=== PATIENT | female | born 1970 ===

== ENCOUNTER 2021-10-17 08:42 | Outpatient (CLI) | payer OTHER ==
[~2021-10-17 08:42] MED LIST: AMOX1TAB12 PO; ZANTAC300 MG PO
== END 2021-10-17 08:44 | disposition home or self-care (01) ==
LOC: NUCLEAR 08:42
PROVIDERS: ATTEND Anesthesiology
DX: S32.002A Unstable burst fracture of unspecified lumbar vertebra, initial encounter for closed fracture (principal)
CPT/HCPCS: 78306; A9503